=== PATIENT | female | born 1940 | race Caucasian/White ===

== ENCOUNTER → 2016-11-04 | Outpatient (CLI) | payer MEDICARE, OTHER ==
[~2016-11-04] MED LIST: ALLOPURINOL300 MG PO; AMOXICILLIN875 MG PO; ASPIR 8181 MG PO; BIOTIN5 MG PO; BUMEX 1MG TABLET1 MG PO; CALCITRIOL0.25 MCG PO; COLACE 100MG C100 MG PO; DOCUSATE SODIU100 MG PO; DULCOLAX10 MG PR; DULERA 200 MCG8.8 GM INH; EFFEXOR XR 75 M75 MG PO; ELIQUIS 2.5 MG2.5 MG PO; ESTRADIOL0.5 MG PO; FENOFIBRATE145 MG PO; K-DUR TAB 20 M20 MEQ PO; KLONOPIN TAB 00.5 MG PO; LEVOTHYROXINE175 MCG PO; LORCET 5-325 M1 EACH PO; LOSARTAN POTASS25 MG PO; MINERAL OIL HEAV1 ML PO; NALOXONE IV; NITROSTAT0.4 MG SL; NORVASC 5 MG TAB5 MG PO; PERCOCET 10-321 EACH PO; POTASSIUM CHLO20 ME1 PO; PRANDIN0.5 MG PO; REQUIP4 MG PO; SYMBICORT 16010.2 GM INH; TRICOR 145 MG145 MG PO; VENTOLIN/PROVE0.5 ML INH; VITAMIN D1000 UNI1 PO; ZEBETA 5 MG TAB5 MG PO; ZOFRAN2 MG/1 ML IV
== END ==
LOC: SLEEP-COR 21:30
DX: G47.30 Sleep apnea, unspecified (principal); G47.10 Hypersomnia, unspecified
CPT/HCPCS: 95810

== ENCOUNTER → 2020-07-18 | Outpatient (CLI) | payer MEDICARE, OTHER ==
[~2020-07-18] MED LIST changes: +ALDACTONE 25MG25 MG PO; +BUMETANIDE1 MG PO; -BUMEX 1MG TABLET1 MG PO; +CEFUROXIME500 MG PO; +CLONAZEPAM0.5 MG PO; +COZAAR100 MG PO; +DONEPEZIL HCL5 MG PO; +EFFEXOR XR 150150 MG PO; -EFFEXOR XR 75 M75 MG PO; -LEVOTHYROXINE175 MCG PO; +LIPITOR TAB 2020 MG PO; +MEDROL4 MG PO; +MEGA BIOTIN10000 MCG PO; +NEURONTIN300 MG PO; +OXYBUTYNIN CHLO10 MG PO; +PROTONIX 40 MG40 M1 PO; +REQUIP5 MG PO; +SPIRIVA RESPIMAT4 GM INH; +SYNTHROID 150150 MCG PO; +TESSALON PERLE100 MG PO; +VITAMIN B-121000 MCG PO; +VITAMIN D250000 UNIT PO; +ZESTRIL2.5 MG PO; +ZYLOPRIM 100 M100 MG PO
== END ==
LOC: RAD 11:56
DX: M54.5 Low back pain (principal); R29.6 Repeated falls; M47.816 Spondylosis without myelopathy or radiculopathy, lumbar region; Z98.890 Other specified postprocedural states
CPT/HCPCS: 72110

== ENCOUNTER → 2020-07-25 | Outpatient (CLI) | payer MEDICARE, OTHER | LOC: MRI 10:15 | DX: M54.16 Radiculopathy, lumbar region (principal); R29.6 Repeated falls; M25.78 Osteophyte, vertebrae; M48.061 Spinal stenosis, lumbar region without neurogenic claudication; M89.48 Other hypertrophic osteoarthropathy, other site; M48.07 Spinal stenosis, lumbosacral region; Z98.890 Other specified postprocedural states | CPT/HCPCS: 36415; 72148; 82565 ==

== ENCOUNTER → 2020-08-05 | Outpatient (CLI) | payer MEDICARE, OTHER | LOC: EXRD 08-04 15:00 | DX: G45.9 Transient cerebral ischemic attack, unspecified (principal); R41.3 Other amnesia; R29.6 Repeated falls | CPT/HCPCS: 93880 ==

== ENCOUNTER 2020-08-31 12:31 | Inpatient (IN) | payer MEDICARE, OTHER ==
[~2020-08-31] VITALS: Ht 160 cm; Wt 86.2 kg
[~2020-08-31 12:31] MED LIST changes: -ALDACTONE 25MG25 MG PO; -DONEPEZIL HCL5 MG PO; -NEURONTIN300 MG PO; -PROTONIX 40 MG40 M1 PO; -SPIRIVA RESPIMAT4 GM INH; -ZESTRIL2.5 MG PO
[2020-08-31 14:38] LABS: HEMOGLOBIN 13.3 gm/dl (12.3-15.3); RED BLOOD COUNT 4.1 M/UL (4.00-5.10); WHITE BLOOD COUNT 8.5 K/UL (4.5-11.0)
[2020-08-31] MEDS ORDERED: PROTONIX 40 MG40 M1 PO (18:19)
[2020-08-31] MEDS ORDERED: NEURONTIN300 MG PO (18:21)
[2020-08-31] MEDS ORDERED: ZESTRIL2.5 MG PO (18:21)
[2020-08-31] MEDS ORDERED: ALDACTONE 25MG25 MG PO (18:25)
[2020-08-31] MEDS ORDERED: SPIRIVA RESPIMAT4 GM INH (18:29)
[2020-09-01 07:51] LABS: HEMOGLOBIN 12.4 gm/dl (12.3-15.3); RED BLOOD COUNT 3.92 M/UL (4.00-5.10); WHITE BLOOD COUNT 8.1 K/UL (4.5-11.0)
[2020-09-02 03:44] LABS: HEMOGLOBIN 12.3 gm/dl (12.3-15.3); RED BLOOD COUNT 3.85 M/UL (4.00-5.10)
[2020-09-05] MEDS ORDERED: KLONOPIN TAB 00.5 MG PO (09:24)
[2020-09-05] MEDS ORDERED: DONEPEZIL HCL5 MG PO (09:24)
== END 2020-09-05 14:20 | DRG 69 ==
LOC: ER1 12:31 → CDU 17:38 → M/S 17:38
PROVIDERS: Internal Medicine; ADMIT Internal Medicine
DX: G45.9 Transient cerebral ischemic attack, unspecified (principal); I50.32 Chronic diastolic (congestive) heart failure; I13.0 Hypertensive heart and chronic kidney disease with heart failure and stage 1 through stage 4 chronic kidney disease, or unspecified chronic kidney disease; N17.9 Acute kidney failure, unspecified; R44.3 Hallucinations, unspecified; Z20.822 Contact with and (suspected) exposure to COVID-19; F01.50 Vascular dementia, unspecified severity, without behavioral disturbance, psychotic disturbance, mood disturbance, and anxiety; E87.5 Hyperkalemia; I11.0 Hypertensive heart disease with heart failure; N18.30 Chronic kidney disease, stage 3 unspecified; J45.909 Unspecified asthma, uncomplicated; G25.81 Restless legs syndrome; E78.5 Hyperlipidemia, unspecified; R27.0 Ataxia, unspecified; M47.9 Spondylosis, unspecified; M51.36 Other intervertebral disc degeneration, lumbar region; M48.061 Spinal stenosis, lumbar region without neurogenic claudication; M54.16 Radiculopathy, lumbar region; Z79.899 Other long term (current) drug therapy
CPT/HCPCS: ECHO; 36415; 70450; 71045; 80048; 80053; 81001; 82550; 82553; 84484; 85025; 85610; 85730; 93306; 94640; 94664; 94760; 97110-GP-CQ; 97116-GP-CQ; 97162; 97166; 97530-GP-CQ; 99285; J1940; U0002

== ENCOUNTER → 2020-11-14 | Outpatient (CLI) | payer MEDICARE, OTHER ==
[~2020-11-14] MED LIST changes: +ALDACTONE 25MG25 MG PO; +DONEPEZIL HCL5 MG PO; +NEURONTIN300 MG PO; +PROTONIX 40 MG40 M1 PO; +SPIRIVA RESPIMAT4 GM INH; +ZESTRIL2.5 MG PO
== END ==
LOC: EXRD 14:09
DX: E04.9 Nontoxic goiter, unspecified (principal); E04.2 Nontoxic multinodular goiter; D47.2 Monoclonal gammopathy; R26.81 Unsteadiness on feet; Z71.2 Person consulting for explanation of examination or test findings
CPT/HCPCS: 76536

== ENCOUNTER → 2021-01-12 | Outpatient (CLI) | payer MEDICARE, OTHER | LOC: KOH-I 12:58 | DX: C34.12 Malignant neoplasm of upper lobe, left bronchus or lung (principal); D47.2 Monoclonal gammopathy; Z71.2 Person consulting for explanation of examination or test findings; R26.81 Unsteadiness on feet | CPT/HCPCS: 71250 ==

== ENCOUNTER 2021-10-06 11:28 | Emergency (ER) | payer MEDICARE, OTHER ==
[2021-10-06 12:17] LABS: HEMOGLOBIN 13.4 gm/dl (12.3-15.3); RED BLOOD COUNT 4.28 M/UL (4.00-5.10); WHITE BLOOD COUNT 8.9 K/UL (4.5-11.0)
[2021-10-06] MEDS ORDERED: VALTREX1000 MG PO (15:36)
[2021-10-06] MEDS ORDERED: CEPHALEXIN500 M1 PO (15:36)
[2021-10-06] MEDS ORDERED: HYDROCODON-ACE1 EAC4 PO (15:42)
== END 2021-10-06 15:55 | disposition home or self-care (01) ==
LOC: ER1 11:28
PROVIDERS: Physician Assistant
DX: N39.0 Urinary tract infection, site not specified (principal); B02.9 Zoster without complications; E11.22 Type 2 diabetes mellitus with diabetic chronic kidney disease; I13.0 Hypertensive heart and chronic kidney disease with heart failure and stage 1 through stage 4 chronic kidney disease, or unspecified chronic kidney disease; N18.9 Chronic kidney disease, unspecified; I50.9 Heart failure, unspecified; J45.909 Unspecified asthma, uncomplicated; Z88.8 Allergy status to other drugs, medicaments and biological substances
CPT/HCPCS: 71045; 80053; 81001; 82550; 82553; 83690; 83880; 84484; 85025; 93005; 94664; 99284

== ENCOUNTER 2021-10-11 14:24 | Inpatient (IN) | payer MEDICARE, OTHER ==
[~2021-10-11] VITALS: Ht 160 cm; Wt 101.4 kg
[~2021-10-11 14:24] MED LIST changes: +CEPHALEXIN500 M1 PO; +HYDROCODON-ACE1 EAC4 PO; +VALTREX1000 MG PO; -ZEBETA 5 MG TAB5 MG PO; -ZESTRIL2.5 MG PO; +ZESTRIL20 MG PO
[2021-10-11 15:38] LABS: HEMOGLOBIN 12.8 gm/dl (12.3-15.3); RED BLOOD COUNT 4.04 M/UL (4.00-5.10); WHITE BLOOD COUNT 9.1 K/UL (4.5-11.0)
[2021-10-12] MEDS ORDERED: ZEBETA 5 MG TAB5 MG PO (11:06)
[2021-10-12] MEDS ORDERED: GABAPENTIN300 MG PO (17:27)
[2021-10-12] MEDS ORDERED: AMLODIPINE BESYL5 MG PO (17:29)
[2021-10-12] MEDS ORDERED: FAMOTIDINE40 MG PO (17:29)
[2021-10-12] MEDS ORDERED: BACLOFEN5 MG PO (17:30)
[2021-10-12] MEDS ORDERED: ARTHRITIS PAIN150 GM TP (17:31)
[2021-10-12] MEDS ORDERED: CLONAZEPAM0.5 M1 PO (17:40)
[2021-10-12] MEDS ORDERED: VITAMIN D325 MCG PO (17:51)
[2021-10-13 06:10] LABS: HEMOGLOBIN 12.7 gm/dl (12.3-15.3); RED BLOOD COUNT 3.99 M/UL (4.00-5.10); WHITE BLOOD COUNT 8.6 K/UL (4.5-11.0)
[2021-10-14 06:56] LABS: HEMOGLOBIN 11.8 gm/dl (12.3-15.3); RED BLOOD COUNT 3.71 M/UL (4.00-5.10); WHITE BLOOD COUNT 7.9 K/UL (4.5-11.0)
[2021-10-15 04:19] LABS: HEMOGLOBIN 12.2 gm/dl (12.3-15.3); RED BLOOD COUNT 3.79 M/UL (4.00-5.10)
[2021-10-16 04:31] LABS: HEMOGLOBIN 11.6 gm/dl (12.3-15.3); RED BLOOD COUNT 3.7 M/UL (4.00-5.10); WHITE BLOOD COUNT 9.7 K/UL (4.5-11.0)
[2021-10-17 06:03] LABS: HEMOGLOBIN 12.1 gm/dl (12.3-15.3); RED BLOOD COUNT 3.79 M/UL (4.00-5.10)
[2021-10-17] MEDS ORDERED: PLAVIX75 MG PO (11:03)
[2021-10-17] MEDS ORDERED: HYDROCODON-ACE1 EAC4 PO (11:09)
[2021-10-17] MEDS ORDERED: IPRAT-ALBUT 0.5-3 ML INH (11:11)
[2021-10-17] MEDS ORDERED: CALCIUM CARBON500 MG PO (11:13)
[2021-10-17] MEDS ORDERED: ACETAMINOPHEN325 MG PO (11:13)
--- NOTE | 2021-10-17 11:35 | NUR ---
REPORT CALLED TO GEOVANY AT [facility]. CALL BACK NUMBER GIVEN IF FACILTY NEEDED MORE INFORMATION.
== END 2021-10-17 11:50 | DRG 65 ==
LOC: ER1 14:24 → MED SURG 4 10-12 15:14
PROVIDERS: Internal Medicine; Nurse Practitioner; ADMIT Internal Medicine
DX: I63.9 Cerebral infarction, unspecified (principal); N17.9 Acute kidney failure, unspecified; G81.92 Hemiplegia, unspecified affecting left dominant side; F01.50 Vascular dementia, unspecified severity, without behavioral disturbance, psychotic disturbance, mood disturbance, and anxiety; Z20.822 Contact with and (suspected) exposure to COVID-19; E03.9 Hypothyroidism, unspecified; F32.A Depression, unspecified; F41.9 Anxiety disorder, unspecified; M10.9 Gout, unspecified; R29.701 NIHSS score 1; I12.9 Hypertensive chronic kidney disease with stage 1 through stage 4 chronic kidney disease, or unspecified chronic kidney disease; Z96.611 Presence of right artificial shoulder joint; Z96.652 Presence of left artificial knee joint; R26.0 Ataxic gait; R53.81 Other malaise; B02.9 Zoster without complications; E86.0 Dehydration; N18.30 Chronic kidney disease, stage 3 unspecified; J45.909 Unspecified asthma, uncomplicated; K21.9 Gastro-esophageal reflux disease without esophagitis; Z90.49 Acquired absence of other specified parts of digestive tract; Z98.890 Other specified postprocedural states; Z88.2 Allergy status to sulfonamides; Z79.899 Other long term (current) drug therapy; Z79.82 Long term (current) use of aspirin
CPT/HCPCS: 0240U; 36415; 70450; 70544; 70551; 71045; 80048; 80053; 81001; 82550; 82553; 83605; 83735; 83874; 84100; 84484; 85025; 85027; 85652; 86140; 87040; 93005; 93880; 94640; 94664; 94760; 97116-GP-CQ; 97161; 97165; 97530; 97530-GP-CQ; 97535; 99285; J1650; J7030; U0002

== ENCOUNTER → 2022-03-23 | Outpatient (CLI) | payer MEDICARE, OTHER ==
[~2022-03-23] MED LIST changes: +ACETAMINOPHEN325 MG PO; +AMLODIPINE BESYL5 MG PO; +ARTHRITIS PAIN150 GM TP; +BACLOFEN5 MG PO; +CALCIUM CARBON500 MG PO; +CLONAZEPAM0.5 M1 PO; +FAMOTIDINE40 MG PO; +GABAPENTIN300 MG PO; +IPRAT-ALBUT 0.5-3 ML INH; +PLAVIX75 MG PO; +VITAMIN D325 MCG PO; +ZEBETA 5 MG TAB5 MG PO
== END ==
LOC: RAD 12:52
DX: S49.92XA Unspecified injury of left shoulder and upper arm, initial encounter (principal); X58.XXXA Exposure to other specified factors, initial encounter
CPT/HCPCS: 73060